=== PATIENT | female | born 2000 | race African-American/Black ===

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

== ENCOUNTER 2021-06-29 18:30 | Observation (INO) | payer OTHER ==
[~2021-06-29] VITALS: Ht 157.5 cm; Wt 62.6 kg
[2021-06-29] MEDS ORDERED: RHO(D) IMMUNE GLOBULIN 300 MCG/SYR IM PRN (19:30)
[2021-06-29] MEDS: LACTATED RINGERS 1,000 ML IV SCH ×2 (19:38→20:30)
[2021-06-29 20:52] LABS: CLARITY URINE CLEAR (CLEAR); COLOR URINE YELLOW (YELLOW); KETONES URINE 4+ (NEGATIVE); LEUKOCYTE ESTERASE URINE NEGATIVE (NEGATIVE); NITRITE URINE NEGATIVE (NEGATIVE); OCCULT BLOOD URINE NEGATIVE (NEGATIVE); PROTEIN URINE TRACE (NEGATIVE)
[2021-06-29 20:57] LABS: HEMATOCRIT. 39.6 % (36.0-48.0); HEMOGLOBIN. 13.4 g/dL (12.0-16.0); MEAN CORPUSCULAR HEMOGLOBIN 31.3 pg (28.0-32.0); MEAN CORPUSCULAR VOLUME 92.6 fL (81.0-99.0); MEAN PLATELET VOLUME 7.6 fl (7.4-10.4); PLATELET 302 x1000/uL (130-400); RED BLOOD CELL COUNT 4.27 mill/uL (4.2-5.4); RED CELL DISTRIBUTION WIDTH 13.1 % (11.6-14.6)
[2021-06-29 21:02] LABS: *AMPHETAMINES SCREEN URINE NEGATIVE (NEGATIVE); *BARBITURATES SCREEN URINE NEGATIVE (NEGATIVE); *BENZODIAZEPINES SCREEN URINE NEGATIVE (NEGATIVE); METHADONE URINE SCREEN NEGATIVE (NEGATIVE); OPIATES URINE SCREEN NEGATIVE (NEGATIVE); PHENCYCLIDINE URINE SCREEN NEGATIVE (NEGATIVE)
[2021-06-29 21:06] LABS: *COCAINE SCREEN URINE PRESUMTIVE POSITIVE (NEGATIVE); CANNABINOID URINE SCREEN PRESUMTIVE POSITIVE (NEGATIVE)
[2021-06-29 22:14] LABS: PARTIAL THROMBOPLASTIN TIME 25.7 sec (23.4-31.0); PROTHROMBIN TIME 10.3 sec (9.6-11.0)
[2021-06-29 22:22] LABS: PLATELET ESTIMATE NORMAL
[2021-06-29 22:45] LABS: HEPATITIS B SURFACE ANTIGEN NEGATIVE
== END 2021-06-29 23:55 | disposition still patient (30) ==
LOC: 8 EST A/PP 18:30
PROVIDERS: ADMIT Obstetrics & Gynecology; ATTEND Obstetrics & Gynecology
DX: O99.012 Anemia complicating pregnancy, second trimester (principal); O21.2 Late vomiting of pregnancy; O99.891 Other specified diseases and conditions complicating pregnancy; M54.9 Dorsalgia, unspecified; O26.892 Other specified pregnancy related conditions, second trimester; R51.9 Headache, unspecified; R03.0 Elevated blood-pressure reading, without diagnosis of hypertension; R10.13 Epigastric pain; Z79.899 Other long term (current) drug therapy; Z3A.21 21 weeks gestation of pregnancy
CPT/HCPCS: 36415; 59025; 76805; 80305; 81003; 85025; 85610; 85730; 86592; 86703; 86762; 86850; 86900; 86901; 87340; 96360; 96372; G0378; 99281

== ENCOUNTER 2021-06-30 00:10 | Emergency (ER) | payer OTHER ==
[~2021-06-30] VITALS: Ht 157.5 cm; Wt 63.0 kg
[2021-06-30 01:19] LABS: CHLORIDE 109 mEq/L (98-107)
[2021-06-30] MEDS ORDERED: ONDANSETRON HCL 4MG/2ML INJ IV ONE (01:30)
[2021-06-30] MEDS ORDERED: IOHEXOL-300 100 ML BOTTLE ONE (03:48)
[2021-06-30] MEDS ORDERED: MORPHINE SULFATE 4 MG/ML CPJ (NOT FOR IM USE) IV ONE ×2 (04:45→10:00)
[2021-06-30] MEDS ORDERED: AMPICILLIN SOD/SULBACTAM NA 3 G in SODIUM CHLORIDE 0.9% 100 ML IV SCH (04:45)
[2021-06-30] MEDS ORDERED: FENTANYL CITRATE/PF 50MCG/ML 2ML VIAL IV ONE (07:45)
[2021-06-30] MEDS ORDERED: METOCLOPRAMIDE HCL 10MG/2ML VIAL IV ONE (10:00)
[2021-06-30 12:18] VITALS: BP 121/67
== END 2021-06-30 13:03 | disposition short-term general hospital (02) ==
LOC: ER 00:10
DX: O26.892 Other specified pregnancy related conditions, second trimester (principal); S02.601A Fracture of unspecified part of body of right mandible, initial encounter for closed fracture; O99.322 Drug use complicating pregnancy, second trimester; F14.90 Cocaine use, unspecified, uncomplicated; Z20.822 Contact with and (suspected) exposure to COVID-19; Z3A.21 21 weeks gestation of pregnancy; W01.0XXA Fall on same level from slipping, tripping and stumbling without subsequent striking against object, initial encounter; Y93.89 Activity, other specified; Y92.018 Other place in single-family (private) house as the place of occurrence of the external cause
CPT/HCPCS: 36415; 70450; 70487; 70491; 76805; 80053; 84484; 87426; 93005; 96365; 96374; 96375; 96376; 99285; J0295; J2270; J2405; J2765; J3010; J7050; Q9967